=== PATIENT | male | born 1970 | race Caucasian/White ===

== ENCOUNTER 2022-04-01 19:14 | Inpatient (IN) | payer OTHER ==
[~2022-04-01] VITALS: Ht 177.8 cm; Wt 201.8 kg
[~2022-04-01 19:14] MED LIST: LOPRESSOR 25 MG25 MG PO; LOPRESSOR50 MG PO; PRINIVIL10 MG PO
[2022-04-01 19:42] LABS: HEMOGLOBIN 13.6 gm/dl (14.0-17.5); RED BLOOD COUNT 4.5 M/UL (4.20-5.50)
[2022-04-01 20:31] LABS: BUN/CREATININE RATIO 16 (0-10)
[2022-04-02 04:00] LABS: HEMOGLOBIN 11.7 gm/dl (14.0-17.5)
[2022-04-02 04:03] LABS: RED BLOOD COUNT 3.91 M/UL (4.20-5.50)
[2022-04-02] MEDS ORDERED: LISINOPRIL40 MG PO (10:41)
[2022-04-02] MEDS ORDERED: SERTRALINE HCL100 MG PO (10:42)
[2022-04-02] MEDS ORDERED: METOPROLOL TART50 MG PO (10:42)
[2022-04-02] MEDS ORDERED: HYDROCHLOROTHIA25 MG PO (10:43)
[2022-04-03 04:04] LABS: HEMOGLOBIN 11.2 gm/dl (14.0-17.5); RED BLOOD COUNT 3.72 M/UL (4.20-5.50)
[2022-04-03 04:07] LABS: WHITE BLOOD COUNT 12.9 K/UL (4.5-11.0)
[2022-04-03 04:24] LABS: BUN/CREATININE RATIO 13 (0-10)
[2022-04-04 05:37] LABS: HEMOGLOBIN 10.9 gm/dl (14.0-17.5); RED BLOOD COUNT 3.61 M/UL (4.20-5.50)
[2022-04-04 05:43] LABS: WHITE BLOOD COUNT 7.4 K/UL (4.5-11.0)
[2022-04-04 05:59] LABS: BUN/CREATININE RATIO 15 (0-10)
[2022-04-05 03:00] LABS: RED BLOOD COUNT 3.66 M/UL (4.20-5.50); WHITE BLOOD COUNT 7.6 K/UL (4.5-11.0)
[2022-04-05 03:20] LABS: BUN/CREATININE RATIO 18 (0-10)
[2022-04-05] MEDS ORDERED: CEPHALEXIN500 MG PO (11:26)
[2022-04-05] MEDS ORDERED: DOXYCYCLINE HY100 MG PO (11:26)
== END 2022-04-05 13:10 | disposition home or self-care (01) | DRG 871 ==
LOC: ER1 19:14 → CDU 21:19 → CCU 21:19 → MED SURG 4 04-03 19:40
PROVIDERS: Family Medicine; Internal Medicine; ADMIT Internal Medicine
PROC: 3E043XZ Introduction of Vasopressor into Central Vein, Percutaneous Approach (ICD-10-PCS; principal; 2022-04-01)
PROC: 3E03329 Introduction of Other Anti-infective into Peripheral Vein, Percutaneous Approach (ICD-10-PCS; 2022-04-01)
DX: A41.9 Sepsis, unspecified organism (principal); R65.21 Severe sepsis with septic shock; L03.115 Cellulitis of right lower limb; N17.9 Acute kidney failure, unspecified; Z68.44 Body mass index [BMI] 60.0-69.9, adult; Z20.822 Contact with and (suspected) exposure to COVID-19; E66.01 Morbid (severe) obesity due to excess calories; F17.210 Nicotine dependence, cigarettes, uncomplicated; I10 Essential (primary) hypertension; Z88.8 Allergy status to other drugs, medicaments and biological substances; Z82.49 Family history of ischemic heart disease and other diseases of the circulatory system
CPT/HCPCS: 0240U; 36415; 71045; 73700; 80048; 80053; 80202; 81001; 82550; 82553; 83036; 83605; 83690; 83735; 84484; 85025; 85379; 85652; 86140; 87040; 87086; 93005; 93971; 96361; 96365; 96366; 96375; 96376; 99285; J0690; J0692; J0696; J1650; J3370; J3475; J7070